=== PATIENT | female | born 1990 | race African-American/Black ===

== ENCOUNTER 2021-03-21 20:50 | Emergency (ER) | payer OTHER ==
[~2021-03-21 20:50] MED LIST: BUSPIRONE HCL15 MG PO; ETODOLAC500 MG PO; GUANFACINE HCL E3 MG PO; SUMATRIPTAN SUC50 MG PO; SYNTHROID125 MCG PO; TAMIFLU 75MG CA75 MG PO; TOPAMAX25 MG PO; TRAZODONE 150M150 MG PO; VIVITROL380 MG SC; WELLBUTRIN XL150 MG PO; ZOFRAN4 MG PO; ZOLOFT100 MG PO
== END 2021-03-21 22:28 | disposition home or self-care (01) ==
LOC: FER 20:50
DX: R50.9 Fever, unspecified (principal); Z53.21 Procedure and treatment not carried out due to patient leaving prior to being seen by health care provider